=== PATIENT | male | born 1940 | race Caucasian/White ===

== ENCOUNTER 2021-10-08 18:18 | Inpatient (IN) | payer MEDICARE ==
[~2021-10-08] VITALS: Ht 180.3 cm; Wt 79.4 kg
[2021-10-08 18:26] VITALS: BP 231/115
[2021-10-08] MEDS ORDERED: THYROID MED (18:30)
[2021-10-08] MEDS ORDERED: [UNRECOGNIZED DRUG - REMARK] (18:30)
[2021-10-08 19:48] LABS: ABSOLUTE EOSINOPHILS 0.1 thou/uL (0.0-0.7); ABSOLUTE LYMPHOCYTES 1.2 thou/uL (0.8-5.3); ABSOLUTE MONOCYTES 0.6 thou/uL (0.0-1.2); ABSOLUTE NEUTROPHILS 4.7 thou/uL (1.6-8.1); BASOPHILS 0.5 %; EOSINOPHILS 2.2 %; HEMATOCRIT 43.9 % (42.0-52.0); HEMOGLOBIN 14.8 gm/dL (14.0-18.0); LYMPHOCYTES 18.3 %; MCHC 33.7 g/dL (28.0-37.0); MCV 88.9 fL (80.0-100.0); MONOCYTES 8.9 %; MPV 9.6 fl. (7.2-11.1); NUCLEATED RBCS 0 /100WBC; PLATELET COUNT* 216 thou/uL (150-400); POLYS 70.1 %; RBC 4.93 mil/uL (4.50-6.00); RDW-CV 13.6 % (10.5-14.5); WBC 6.8 thou/uL (4.0-11.0)
[2021-10-08 20:00] LABS: APTT 24.8 Seconds (25.0-31.3); PROTIME 10.3 Seconds (9.20-11.50)
[2021-10-08 20:13] LABS: CALCIUM 8.7 mg/dL (8.5-10.1); CREATININE 1.3 mg/dL (0.6-1.3); POTASSIUM 3.9 mmol/L (3.5-5.1)
[2021-10-08 20:24] LABS: ALBUMIN 3.4 g/dL (3.4-5.0); TOTAL BILIRUBIN 0.3 mg/dL (<0.1-1.0)
[2021-10-09] VITALS (10 sets, daily range): BP systolic 133–176; BP diastolic 62–80
[2021-10-09 11:23] LABS: CHOLESTEROL 154 mg/dL (<200); HDL CHOLESTEROL 45 mg/dL (>40); LDL CHOLESTEROL 81 mg/dL (<100); TC:HDL 3.4 Ratio (Not establshd); TRIGLYCERIDE 142 mg/dL (<150); VLDL 28 mg/dL (<40)
[2021-10-09 11:26] LABS: SERUM ASSESSMENT CLEAR
--- NOTE | 2021-10-09 12:21 | EKG ---
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
--- NOTE | 2021-10-09 12:25 | EKG ---
[place] [address] ELECTROCARDIOGRAM REPORT Name: TALITA SAL Room: [place] [address] ADM IN ..#: [id number] Admission: 10/08/21 Attend Phys: Sancho Huerta Discharge: Date of : 36 Date of Service: 10/08/21 2338 Report #: [id number] THIS REPORT FOR: //name// [facility] ED Test Date: 2021-10-08 Test Time: 23:38:27 Pat Name: TALITA SAL Department: Room: [facility] Gender: M Adult Neuropsychologist: TAB : 1940 Requested By: Fifi Gutierrez Order Number: [id number] MD: Jasen Williamson Measurements Intervals [place] Rate: 65 P: 2 NH: 283 QRS: -50 QRSD: 150 T: 108 QT: 436 QTc: 454 Interpretive Statements Sinus rhythm Prolonged NH interval Right bundle branch block LVH, by voltage Baseline wander in lead(s) V5 No previous ECG available for comparison Electronically Signed On 10-09-2021 12:24:51 MAINTENANCE MACHINIST by Jasen Williamson [email or web address] <ELECTRONICALLY SIGNED> By: Jasen Williamson MD, FACC 10/09/21 1224 2338 2338 Jasen Williamson MD, FACC /EPI
--- NOTE | 2021-10-09 12:37 | NUR ---
Attempted assessment however pt is leaving for a heart cath. CM to continue following for discharge planning.
--- NOTE | 2021-10-09 18:28 | NUR ---
WITHDRAWN 2 CC OF AIR FROM RADIAL BAND AT 0615 PM. REMAINING AIR INSIDE THE BAND-6 CC. RIGHT RADIAL SITE LOOKS CLEAN, DRY AND INTACT. RIGHT GROIN WAS SHOWED TO JAZMYNE HARDY AND WAS CLEAN, DRY AND INTACT AND REPORT WAS GIVEN AT 0615 PM.
--- NOTE | 2021-10-09 22:00 | NUR ---
RECEIVED REPORT AND ASSUMED CARE OF PT, ASSESSMENT COMPLETED. PT CONFUSED, STATES HE WOKE UP AND DID NOT KNOW WHERE HE WAS OR WHAT WAS GOING ON. REASSURANCE GIVEN. RT WRIST AND RT GROIN WITHOUT DRAINAGE, EDEMA, BRUISING OR HEMATOMA. EXPLAINED THIS TO PT. AT 2100 PT BECAME INCREASINGLY CONFUSED, PULLED OUT IV, REMOVED TRACK MANAGER AND GOT DRESSED WALKING IN HALLWAY GOING HOME. PT VERY ANXIOUS ABOUT NOT GETTING BYPASS SURGERY AND WAS GOING HOME SINCE HE WASN'T GETTING ANY THING DONE. LONG DISCUSSION WITH PT, SECURITY IN ROOM ALSO. WAS ABLE TO GET HOSPITAL GOWN BACK ON AND TELE MONITOR. NO ABLE TO RESTART IV HEPARIN. TALKED WITH SON BY PHONE AND EXPLAINED ALL THIS. STATES PATIENT ALSO CALLED HIM AND HE ALSO TOLD HIM HE WAS STAYING AND WHAT WAS GOING ON. CALL PLACED TO CARDIOLOGY.
[2021-10-10 00:59] VITALS: BP 128/54
--- NOTE | 2021-10-10 05:00 | NUR ---
PT SLEPT MOST OF NIGHT. GAIT STEADY TO BATHROOM AND BACK. RT WRIST AND RT GROIN REMAIN WITHOUT HEMATOMA OR DRAINAGE. CARDIOLOGY NEVER RETURNED CALL CONCERNING HEPARIN AND PT CONDITION. TELEMETRY SHOWING SR WITH 1ST AVB AND BBB.
[2021-10-10 05:26] VITALS: BP 114/48
[2021-10-10 08:00] VITALS: BP 132/72
[2021-10-10 08:57] LABS: ABSOLUTE BASOPHILS 0.1 thou/uL (0.0-0.2); ABSOLUTE EOSINOPHILS 0.1 thou/uL (0.0-0.7); ABSOLUTE LYMPHOCYTES 1.9 thou/uL (0.8-5.3); ABSOLUTE MONOCYTES 0.9 thou/uL (0.0-1.2); ABSOLUTE NEUTROPHILS 5.1 thou/uL (1.6-8.1); EOSINOPHILS 1.7 %; HEMATOCRIT 45.3 % (42.0-52.0); LYMPHOCYTES 22.9 %; MCH 29.9 pg (26.0-34.0); MCV 90.7 fL (80.0-100.0); MONOCYTES 11.4 %; MPV 9.7 fl. (7.2-11.1); NUCLEATED RBCS 0 /100WBC; PLATELET COUNT* 217 thou/uL (150-400); RDW-CV 13.5 % (10.5-14.5); WBC 8.1 thou/uL (4.0-11.0)
[2021-10-10 09:06] LABS: CALCIUM 8.5 mg/dL (8.5-10.1); CREATININE 1.3 mg/dL (0.6-1.3); POTASSIUM 3.8 mmol/L (3.5-5.1)
[2021-10-10 12:08] VITALS: BP 120/63
--- NOTE | 2021-10-10 18:00 | NUR ---
RECEIVED REPORT. ASSUMED CARE OF PT AROUND 0730. AM ASSESSMENT AND VITALS COMPLETED CHARTED. MEDS PER EMAR. HEPARIN GTT DC'D. OKAY TO LEAVE IV OUT. TO DC TOMORROW AND FOLLOW UP WITH CARDIOLOGY OUTPATIENT TO DISCUSS NEED FOR BYPASS. SON WITH PT MOST OF SHIFT. SOME FOREGTFULLNESS, BUT REORIENTS EASILY. NO PAIN. 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 FALL PRECAUTIONS IN PLACE. HOURLY ROUNDING.
[2021-10-10 20:00] VITALS: BP 112/52
[2021-10-11 00:38] VITALS: BP 121/55
--- NOTE | 2021-10-11 04:36 | NUR ---
SLEPT WELL TONIGHT. AMBULATED IN HALLWAY EARLIER IN EVENING. RT GROIN AND WRIST ASSESSED, REMAINS DRY AND INTACT WITHOUT HEMATOMA OR ECCHYMOSIS. TELEMETRY CONT TO SHOW SR WITH 1ST AVB AND BBB. NO COMPLAINTS VOICED.
[2021-10-11 05:25] VITALS: BP 114/57
[2021-10-11 08:00] VITALS: BP 152/68
[2021-10-11] MEDS ORDERED: NITROGLYCERIN0.4 MG SUBLING (08:08)
[2021-10-11] MEDS ORDERED: LIPITOR 40 MG T40 M1 PO (08:08)
[2021-10-11] MEDS ORDERED: IMDUR 30 MG TAB30 M1 PO (08:08)
[2021-10-11] MEDS ORDERED: CARVEDILOL3.125 MG PO (08:08)
[2021-10-11] MEDS ORDERED: PRINIVIL20 MG PO (08:08)
[2021-10-11] MEDS ORDERED: BAYER CHEWABLE81 MG PO (08:08)
[2021-10-11 12:37] VITALS: BP 152/68
--- NOTE | 2021-10-11 13:48 | NUR ---
ASSUMED PT CARE AT 0730, PT AOX4 BUT A LITTLE FORGETFUL, GOT A SHOWER TODAY AND WORKED W/ HOSPITALIST, DC ORDERS RECEIVED. CARDS CONSULTED ON DC MEDS AND SINCE PT WILL BE HAVING OUTPT BIPASS SURGERY, ONLY DC BLOOD THINNER IS ASA, PT GIVEN INSTRUCTIONS ON NEW MEDS AND F/U APPTS. CAFETERIA CASHIER REMOVED. PT DC'D BY WC W/ NURSING STAFF AND ALL PAPERWORK AND PERSONAL BELONGINGS TO SON'S VEHICLE AT APPROX 1320
[2021-10-11 13:50] VITALS: BP 152/68
[2021-10-12 07:25] LABS: GLYCOHEMOGLOBIN (HGB A1C) 5.8 % (4.8-5.6)
== END 2021-10-11 13:20 | disposition home or self-care (01) | DRG 282 ==
LOC: M.ERS 18:18 → M.TBA-ER 23:52 → M.2W 23:52 → M.TBA-CV 10-09 11:44 → M.2W 10-09 18:10
PROVIDERS: Internal Medicine; Internal Medicine Cardiovascular Disease; Personal Emergency Response Attendant; Registered Nurse; ADMIT Internal Medicine; ATTEND Internal Medicine
DX: I21.4 Non-ST elevation (NSTEMI) myocardial infarction (principal); I10 Essential (primary) hypertension; E11.9 Type 2 diabetes mellitus without complications; Z20.822 Contact with and (suspected) exposure to COVID-19; Z95.1 Presence of aortocoronary bypass graft; I25.10 Atherosclerotic heart disease of native coronary artery without angina pectoris; E78.5 Hyperlipidemia, unspecified